=== PATIENT | female | born 1940 | race Hispanic/Latino ===

== ENCOUNTER 2019-01-15 09:00 | Observation (INO) | payer MEDICARE ==
[~2019-01-15] VITALS: Ht 154.9 cm; Wt 59.5 kg
[2019-01-15 09:01] VITALS: BP 143/75
[2019-01-15 09:11] LABS: CREATININE 1.1 mg/dL (0.5-1.5); POTASSIUM 4.1 mmol/L (3.5-5.1)
[2019-01-15 09:16] LABS: BASOPHILS % (AUTO) 0.9 % (0.0-5.0); EOSINOPHILS % (AUTO) 4.5 % (0.0-8.0); HEMATOCRIT 33.2 % (36-48); LYMPHOCYTES % (AUTO) 28.3 % (21.0-51.0); MEAN CORPUSCULAR HEMOGLOBIN 28.3 pg (27.0-33.0); MEAN CORPUSCULAR HGB CONC 33.4 g/dL (32.0-36.0); MEAN CORPUSCULAR VOLUME 84.9 fL (79-99); MONOCYTES % (AUTO) 9.3 % (3.0-13.0); PLATELET COUNT (AUTO) 106 K/uL (130-400); WHITE BLOOD COUNT (AUTO) 5.3 K/uL (4.8-10.8)
[2019-01-15] MEDS ORDERED: SIMV40TA5 PO (09:39)
[2019-01-15] MEDS ORDERED: MELO-106 PO (09:39)
[2019-01-15] MEDS ORDERED: LISI10TA7 PO (09:39)
[2019-01-15] MEDS ORDERED: METF-444 PO (09:39)
[2019-01-15] MEDS ORDERED: GABA-529 PO (09:39)
[2019-01-15] MEDS ORDERED: ALEN70TA10 PO (09:50)
[2019-01-15] MEDS ORDERED: CHOL100018 PO (09:50)
--- NOTE | 2019-01-17 15:56 | NUR ---
T/S INFORMED DR. BARRERA OF LOW PLATELETS. ORDERS RECEIVED TO REDRAW CBC/TYPE AND SCREEN IN AM OF PROCEDURE.
[2019-01-18] VITALS (20 sets, daily range): BP systolic 104–154; BP diastolic 58–88
[2019-01-18] MEDS: CEFAZOLIN SODIUM 1 GM VIAL IVP SCH ×2 (06:00→08:00)
[2019-01-18] MEDS ORDERED: SODIUM CHLORIDE 0.9% 1000ML 1,000 ML IV ONE (06:51)
[2019-01-18] MEDS ORDERED: BUPIVACAINE/EPI/PF 0.5% 30ML VIAL IJ ONE (06:51)
[2019-01-18] MEDS ORDERED: THROMBIN-JMI 20000 UNIT KIT TP ONE (06:51)
[2019-01-18] MEDS ORDERED: BACITRACIN 50,000 UNIT VIAL ONE (06:51)
[2019-01-18] MEDS ORDERED: SUCCINYLCHOLINE 200MG/10ML SYR ONE (06:55)
[2019-01-18] MEDS ORDERED: LIDOCAINE PF 2% 5ML ABBOJECT ONE (06:55)
[2019-01-18] MEDS ORDERED: DEXAMETHASONE SOD PHOSPHATE 10MG/ML 1ML VIAL ONE ×2 (06:56→06:59)
[2019-01-18] MEDS ORDERED: ONDANSETRON HCL 4 MG/2 ML VIAL ONE (06:56)
[2019-01-18] MEDS ORDERED: NEOSTIGMINE 5MG/5ML SYR IV ONE (06:56)
[2019-01-18] MEDS ORDERED: PROPOFOL 10 MG/ML 20ML VIAL IV ONE (06:56)
[2019-01-18] MEDS ORDERED: MIDAZOLAM HCL 1 MG/ML 2ML VIAL ONE (06:56)
[2019-01-18] MEDS ORDERED: GLYCOPYRROLATE 1 MG/5 ML SYRINGE ONE (06:56)
[2019-01-18] MEDS ORDERED: FENTANYL CITRATE PF 50 MCG/1 ML 2ML VIAL ONE ×2 (06:57→08:35)
[2019-01-18] MEDS ORDERED: ROCURONIUM 10MG/1ML SYR 10 MG/ML ML ONE ×2 (06:57→09:17)
[2019-01-18] MEDS ORDERED: PHENYLEPHRINE HCL 10 MG/ML 1ML VIAL IV ONE (06:59)
--- NOTE | 2019-01-18 07:00 | NUR ---
ABNORMAL LABS Brandon Malcolm CRNA aware of platelet results Dr Henson aware of platelet results Addendum: 01/18/19 at 0737 by TRELL CONROY RN RN Amended: Links added.
[2019-01-18] MEDS ORDERED: EPHEDRINE SULFATE 50 MG/ML AMPULE ONE (07:02)
[2019-01-18 07:09] LABS: EOSINOPHILS % (AUTO) 4.4 % (0.0-8.0); HEMATOCRIT 32.5 % (36-48); LYMPHOCYTES % (AUTO) 29.8 % (21.0-51.0); MEAN CORPUSCULAR HEMOGLOBIN 28.3 pg (27.0-33.0); MEAN CORPUSCULAR HGB CONC 33.1 g/dL (32.0-36.0); MEAN CORPUSCULAR VOLUME 85.6 fL (79-99); MONOCYTES % (AUTO) 8.7 % (3.0-13.0); NEUTROPHILS % (AUTO) 56.1 % (40.0-77.0); PLATELET COUNT (AUTO) 92 K/uL (130-400); RED CELL DISTRIBUTION WIDTH 13.7 % (11.0-15.5); WHITE BLOOD COUNT (AUTO) 5.4 K/uL (4.8-10.8)
[2019-01-18] MEDS ORDERED: MANNITOL 20% 500ML BAG 500 ML IV ONE (07:54)
[2019-01-18] MEDS ORDERED: PROMETHAZINE HCL 25 MG/ML 1ML AMPULE IM PRN (11:00)
[2019-01-18] MEDS ORDERED: SODIUM CHLORIDE 0.9% 10 ML VIAL IVP PRN (11:00)
[2019-01-18] MEDS ORDERED: MORPHINE SULFATE 2 MG/ML 1ML SYG IVP PRN (11:00)
[2019-01-18] MEDS ORDERED: CEFAZOLIN SODIUM 1 GM VIAL IVP SCH (11:00)
[2019-01-18] MEDS ORDERED: ESMOLOL HCL 10 MG/ML 10 ML VIAL ONE (11:19)
[2019-01-18] MEDS: DEXAMETHASONE SOD PHOSPHATE 4 MG/ML 1ML VIAL IVP SCH ×3 (12:40→23:13)
[2019-01-18] MEDS: LACTATED RINGERS 1000ML 1,000 ML IV SCH (12:44)
[2019-01-18] MEDS: HYDROCODONE/ACETAMINOPHEN 5/325 MG TAB PO PRN (15:10)
[2019-01-18] MEDS ORDERED: GLUCAGON 1MG KIT 1 MG ML IM PRN (19:30)
[2019-01-18] MEDS ORDERED: DEXTROSE 50%-WATER 50 ML DISP.SYRIN IV PRN (19:30)
[2019-01-18] MEDS ORDERED: SIMVASTATIN 20 MG TABLET PO SCH (21:00)
[2019-01-18] MEDS: GABAPENTIN 100 MG CAPSULE PO SCH (21:02)
[2019-01-18] MEDS: INSULIN HUMULIN R 100 UNIT/ML 3ML SQ SCH (21:10)
--- NOTE | 2019-01-18 21:30 | NUR ---
AMBULATING PT AMBULATING HALLWAY PER MD ORDER. USED ASSISTANCE OF WALKER, PER PT AND DAUGHTER PT USES WALKER AT HOME TO AMBULATE. NO C/O DIZZINESS OR DISCOMFORT AT THIS TIME.
[2019-01-19] MEDS: LACTATED RINGERS 1000ML 1,000 ML IV SCH (00:18)
[2019-01-19 04:00] VITALS: BP 156/82
[2019-01-19] MEDS: DEXAMETHASONE SOD PHOSPHATE 4 MG/ML 1ML VIAL IVP SCH ×2 (05:38→11:00)
[2019-01-19] MEDS: INSULIN HUMULIN R 100 UNIT/ML 3ML SQ SCH (05:59)
[2019-01-19] MEDS: HYDROCODONE/ACETAMINOPHEN 5/325 MG TAB PO PRN (06:08)
--- NOTE | 2019-01-19 06:12 | NUR ---
AMBULATING PT AMBULATING HALLWAY PER MD ORDER. USED ASSISTANCE OF WALKER. NO C/O DIZZINESS OR DISCOMFORT AT THIS TIME. STODDARD CATHETER DISCONTINUED AT 0540 THIS MORNING. NO DISCOMFORT VOICED. PT DUE TO VOID.
[2019-01-19 07:47] VITALS: BP 161/99
[2019-01-19] MEDS ORDERED: LISINOPRIL 10 MG TABLET PO SCH (09:00)
[2019-01-19] MEDS ORDERED: **HM**Cholecalciferol (Vitamin D3) (Vitamin D3) 1,000 UNIT PO SCH (09:00)
[2019-01-19] MEDS: GABAPENTIN 100 MG CAPSULE PO SCH (09:00)
[2019-01-19] MEDS ORDERED: MELOXICAM 7.5 MG TABLET PO SCH (09:00)
[2019-01-19] MEDS ORDERED: METFORMIN HCL 500 MG TABLET PO SCH (09:00)
--- NOTE | 2019-01-19 11:00 | NUR ---
CM NOTES CHART REVIEWED PT HERE FOR SHORT STAY SCHEDULE SURGYER- NO TRIVGGERS TO CM BY INSERT MOLDING OPERATOR, NO CONCNERS RAISED BY PT, DETIALED CM ASSESSMENT DEFERRED AT THIS TIME Addendum: 01/19/19 at 2032 by PEDRO CHAN RN CM Amended: Links added.
--- NOTE | 2019-01-19 11:00 | NUR ---
DRESSING CHANGE DRESSING CHANGED TO POSTERIOR NECK, INCISION WITH VIOLET D/I, NO REDNESS OR DRAINAGE NOTED TO SITE. CLEANSE INCISION WITH BETADINE AND COVERED WITH 4X4'S AND HYPAFIX TAPE, TOLERATED WELL.
--- NOTE | 2019-01-19 11:10 | NUR ---
DISCHARGE INSTRUCTIONS DISCHARGE INSTRUCTIONS GIVEN TO PT AND FAMILY, PRESCRIPTION GIVEN TO PT. REMOVED PIV, CATHETER TIP INTACT. Addendum: 01/19/19 at 1631 by KAYLA NICOLE RN ADDENDUM TO NOTE PER PT, STAPLE REMOVER WAS GIVEN EARLIER FOR PT TO TAKE TO HER APPT.
--- NOTE | 2019-01-19 11:38 | NUR ---
DISCHARGE PT DISCHARGE HOME ACCOMPANIED BY STAFF AND FAMILY MEMBERS, NO DISTRESS NOTED.
[2019-01-25] MEDS ORDERED: ALENDRONATE SODIUM 35 MG TAB PO SCH (09:00)
== END 2019-01-19 11:35 | disposition home or self-care (01) ==
LOC: EDSTATUS 09:00 → DAHIP 01-18 05:40 → EDSTATUS 01-18 09:00 → 4AH 01-18 11:56
PROVIDERS: ADMIT Neurological Surgery; ATTEND Neurological Surgery
DX: M48.02 Spinal stenosis, cervical region (principal); G95.89 Other specified diseases of spinal cord; E11.9 Type 2 diabetes mellitus without complications; I10 Essential (primary) hypertension; Z98.1 Arthrodesis status
CPT/HCPCS: 36415 ×2; 63045; 63048; 71045; 80048; 82948 ×5; 85025 ×2; 86850; 86900; 86901; 96372; 96374; 96375; 96376 ×2; A4215; A4221; A4222; A4223; A4344; A4510; A4600; A4606; A4649 ×3; A4663; A6260; C1713; G0378 ×25; J0330; J0690 ×2; J1100 ×6; J1815; J2001; J2250; J2370; J2405; J2704; J2710; J3010 ×2; J3490 ×5; J7030; J7120